=== PATIENT | female | born 2000 | race Caucasian/White ===

== ENCOUNTER 2023-05-30 05:14 | Emergency (ER) | payer OTHER, BC ==
--- NOTE | 2023-05-30 05:54 | ED Physician Documentation ---
History of Present Illness - Stated complaint Stated Complaint: SOA - Chief complaint Chief Complaint: General - History obtained from History obtained from: Patient - Additonal information Additional information: 2 days of chest tightness, nonproductive cough, sore throat, and ear "fullness" like there may be fluid behind ears. Patient reports hx of intermittent "breathing issues" since getting COVID several years ago and has an inhaler, but that hasn't changed anything. Urgent care not open right now so came to ED instead. Unknown sick contacts. Denies fevers. Review of Systems Constitutional: denies: Fever, Chills Eyes: denies: Loss of vision, Decreased vision, Photophobia Ears: denies: Loss of hearing, Ear pain, Drainage/discharge, Tinnitus/ringing, Foreign body Nose: denies: Rhinorrhea / runny nose, Congestion Throat: reports: Sore throat. denies: Dental pain / toothache, Oral lesions / sores Cardiac: denies: Chest pain / pressure, Palpitations Respiratory: reports: Dyspnea, Cough. denies: Wheezing GI: denies: Nausea, Vomiting PD PAST MEDICAL HISTORY - Allergies Allergies/Adverse Reactions: Allergies Allergy/AdvReac Type Severity Reaction Status Date / Time No Known Drug Allergies Allergy Verified 05/30/23 06:08 PD ED PE NORMAL - Vitals Vital signs reviewed: Yes - General General: Alert and oriented X 3, No acute distress - HEENT HEENT: Atraumatic, PERRL, EOMI, Ears normal, Other (pharyngeal erythema, no obvious exudate) - Neck Neck: Supple, no meningeal sign - Cardiac Cardiac: RRR - Respiratory Respiratory: No respiratory distress, Clear bilaterally, Other (no wheezing) - Abdomen Abdomen: Soft, Non tender, Non distended - Derm Derm: Normal color, Warm and dry, No rash - Extremities Extremities: No deformity, No tenderness to palpate, Normal ROM s pain, No edema - Neuro Neuro: Alert and oriented X 3, fiction and nonfiction author 2-12 intact, No motor deficit, Normal speech - Psych Psych: Normal mood, Normal affect Results - Vitals Vitals: Vital Signs - 24 hr 05/30/23 05/30/23 05/30/23 05:24 06:14 06:46 Temperature 36.4 C L Heart Rate 100 96 76 Respiratory 20 16 16 Rate Blood Pressure 112/63 108/69 96/59 L O2 Saturation 99 99 99 Oxygen O2 Source Room air - Labs Labs: Laboratory Tests 05/30/23 05/30/23 05:53 05:53 Influenza A (Rapid) Negative Influenza B (Rapid) Negative Group A Strep Rapid Negative PD Medical Decision Making - ED course Complexity details: reviewed results, re-evaluated patient, considered differential, d/w patient, d/w family ED course: well appearing patient with symptoms suggestive of viral syndrome. Perc negative, saturating 100% on room air, conversational without effort, lung clear bilaterally without wheezing. Will swab for flu/strep Flu/strep negative. Patient comfortable in exam room. Patient and significant other at bedside counseled on swab results. Recommended Tylenol and Motrin as needed for pain, using [id number] decongestant such as Mucinex or Sudafed for congestion and ear fullness, and she may use salt water gargles for throat comfort. Robitussin advised for cough. Departure - Departure Disposition: 01 Home, Self Care Clinical Impression: Nonspecific syndrome suggestive of viral illness Condition: Stable Instructions: ED Viral Syndrome Comments: TAKE OVER THE COUNTER DECONGESTANTS SUCH MUCINEX. YOU MAY USE COUGH MEDICATIONS SUCH ROBITUSSIN. TAKE TYLENOL AND MOTRIN NEEDED FOR PAIN. Forms: PCP List Discharge Date/Time: 05/30/23 06:46
[2023-05-30] MEDS ORDERED: CHERRY SYRUP 10 ML UDC PO ONE (05:56)
[2023-05-30] MEDS ORDERED: DEXAMETHASONE 10 MG/ML VIAL PO STA (05:56)
[2023-05-30 06:07] LABS: RAPID STREP SCREEN Negative (Negative)
[2023-05-30 06:12] VITALS: O2SAT 99
[2023-05-30 06:54] VITALS: BP 96/59
== END 2023-05-30 06:46 | disposition home or self-care (01) ==
LOC: ED 05:14
DX: R07.9 Chest pain, unspecified (principal); R07.0 Pain in throat; R05.9 Cough, unspecified
CPT/HCPCS: 87070; 87275; 87276; 87430; 99283; A9270